=== PATIENT | male | born 1945 | race Caucasian/White ===

== ENCOUNTER 2022-02-22 14:47 | Outpatient (CLI) | payer MEDICARE, BC ==
[2022-02-22 15:37] LABS: BASOPHILS % (AUTO) 0.1 % (0.0-2.0); EOSINOPHILS % (AUTO) 0.2 % (0.0-6.0); HEMATOCRIT 47 % (39-51); HEMOGLOBIN 15.4 g/dL (13.5-17.5); LYMPHOCYTES # (AUTO) 1.4 K/uL (0.8-4.8); LYMPHOCYTES % (AUTO) 9.6 % (20.0-44.0); MEAN CORPUSCULAR HGB CONC 33 g/dl (31.0-36.0); MEAN CORPUSCULAR VOLUME 87 fL (80-96); MONOCYTES # (AUTO) 0.7 K/uL (0.1-1.30); MONOCYTES % (AUTO) 4.9 % (2.0-12.0); NEUTROPHILS # (AUTO) 12.1 K/uL (1.8-8.9); NEUTROPHILS % (AUTO) 85.2 % (43.0-81.0); PLATELET COUNT (AUTO) 448 K/uL (150-450); RED BLOOD CELL COUNT(AUTO) 5.39 MIL/uL (4.5-6.0); WHITE BLOOD COUNT (AUTO) 14.2 K/uL (4.3-11.0)
[2022-02-22 15:54] LABS: ALANINE AMINOTRANSFERASE 12 U/L (12-78); ALBUMIN 3.1 g/dL (3.4-5.0); ALKALINE PHOSPHATASE 80 U/L (46-116); ASPARTATE AMINOTRANSFERASE 18 U/L (15-37); BILIRUBIN,TOTAL 0.7 mg/dL (0.2-1.0); CALCIUM, SERUM 10.4 mg/dL (8.5-10.1); CARBON DIOXIDE 26 mmol/L (21-32); CHLORIDE 98 mmol/L (98-107); CREATININE 2.1 mg/dL (0.6-1.3); GLUCOSE 172 mg/dL (74-106); POTASSIUM 4.7 mmol/L (3.5-5.1); SODIUM SERUM 136 mmol/L (136-145); TOTAL PROTEIN, SERUM 7.8 g/dL (6.4-8.2); UREA NITROGEN, BLOOD 36 mg/dL (7-18)
[2022-02-22 16:06] LABS: SERUM AMMONIA 3 umol/L (11-32)
== END 2022-02-22 23:59 | disposition home or self-care (01) ==
LOC: LAB 14:47
PROVIDERS: ATTEND Internal Medicine Interventional Cardiology
DX: K74.60 Unspecified cirrhosis of liver (principal); E86.0 Dehydration; D68.9 Coagulation defect, unspecified; G93.40 Encephalopathy, unspecified
CPT/HCPCS: 80053-TC; 82140-TC; 85025-TC; 87040-TC